=== PATIENT | female | born 1975 | race Caucasian/White ===

== ENCOUNTER → 2016-12-20 | Outpatient (CLI) | payer OTHER ==
[2016-12-20 17:56] LABS: MEAN CORPUSCULAR HEMOGLOBIN 19.9 pg (27.0-33.0); MEAN CORPUSCULAR HGB CONC 28.1 g/dl (32.0-36.5); RED CELL DISTRIBUTION WIDTH 17.9 % (11.5-14.5); WHITE BLOOD COUNT 5.2 K/mm3 (4.0-10.0)
[2016-12-20 18:00] LABS: ALBUMIN 3.4 GM/DL (3.2-5.2); ALBUMIN/GLOBULIN RATIO 1.21 (1.00-1.93); ALKALINE PHOSPHATASE 55 U/L (45-117); ALT/SGPT 13 U/L (12-78); ANION GAP 7 MEQ/L (8-16); AST/SGOT 11 U/L (15-37); BILIRUBIN,TOTAL 0.2 MG/DL (0.2-1.0); BLOOD UREA NITROGEN 8 MG/DL (7-18); CALCIUM LEVEL 7.9 MG/DL (8.5-10.1); CARBON DIOXIDE LEVEL 28 MEQ/L (21-32); CHLORIDE LEVEL 105 MEQ/L (98-107); CREATININE FOR GFR 0.63 MG/DL (0.55-1.02); FERRITIN 3 NG/ML (8-252); GLOMERULAR FILTRATION RATE > 60.0 (>60); GLUCOSE, FASTING 98 MG/DL (70-105); PERCENT SATURATION 3.4 % (13.2-37.4); POTASSIUM SERUM 3.7 MEQ/L (3.5-5.1); SODIUM LEVEL 140 MEQ/L (136-145); TOTAL IRON BINDING CAPACITY 411 UG/DL (250-450); TOTAL PROTEIN 6.2 GM/DL (6.4-8.2)
[2016-12-20 18:17] LABS: VITAMIN B12 LEVEL 227 PG/ML (247-911)
[2016-12-21 10:54] LABS: PRETREATED FOLATE FOR RBCFOL 4.5 NG/ML
== END ==
LOC: M WUC 15:08
PROVIDERS: ATTEND Family Medicine
DX: Z98.84 Bariatric surgery status (principal)

== ENCOUNTER → 2017-04-25 | Outpatient (REF) | payer OTHER | LOC: M LAB REF 10:31 | PROVIDERS: ATTEND Physician Assistant | DX: R10.31 Right lower quadrant pain (principal) ==

== ENCOUNTER → 2017-04-30 | Outpatient (CLI) | payer OTHER | LOC: M WUC 13:45 | PROVIDERS: ATTEND Family Medicine | DX: R53.83 Other fatigue (principal) ==

== ENCOUNTER 2017-09-05 10:36 | Day surgery (SDC) | payer BC, OTHER ==
[2017-09-05] MEDS ORDERED: LIDOCAINE 2% INJ 100 MG/5 ML SDV (FOR ANES.) As Ordered ×2 (10:37→12:02)
[2017-09-05] MEDS ORDERED: PROPOFOL 200 MG/20 ML VIAL As Ordered ×3 (10:37→12:07)
[2017-09-05] MEDS: NS 1,000 ML IV (11:00)
== END 2017-09-05 12:57 | disposition home or self-care (01) ==
LOC: M OPP 10:36
DX: R10.84 Generalized abdominal pain (principal); K59.00 Constipation, unspecified; R10.813 Right lower quadrant abdominal tenderness; K44.9 Diaphragmatic hernia without obstruction or gangrene; R14.0 Abdominal distension (gaseous); Z98.84 Bariatric surgery status; M54.2 Cervicalgia; F41.9 Anxiety disorder, unspecified; F32.9 Major depressive disorder, single episode, unspecified; G43.909 Migraine, unspecified, not intractable, without status migrainosus; Z87.19 Personal history of other diseases of the digestive system; F17.210 Nicotine dependence, cigarettes, uncomplicated; Z79.899 Other long term (current) drug therapy; Z80.42 Family history of malignant neoplasm of prostate
CPT/HCPCS: 45378

== ENCOUNTER → 2018-03-12 | Outpatient (REF) | payer BC, OTHER ==
[2018-03-12 11:46] LABS: HEMOGLOBIN 7.9 g/dl (12.0-15.5); MEAN CORPUSCULAR HEMOGLOBIN 18.6 pg (27.0-33.0); MEAN CORPUSCULAR HGB CONC 26.3 g/dl (32.0-36.5); MEAN CORPUSCULAR VOLUME 70.8 fl (80.0-96.0); PLATELET COUNT, AUTOMATED 261 10^3/uL (150-450); RED BLOOD COUNT 4.24 10^6/uL (4.00-5.40); RED CELL DISTRIBUTION WIDTH 22.3 % (11.5-14.5); WHITE BLOOD COUNT 5.3 10^3/uL (4.0-10.0)
[2018-03-12 12:14] LABS: HCG, SERUM QUANTITATIVE 482 MIU/ML
== END ==
LOC: M LABDRAWC 11:31
DX: Z00.00 Encounter for general adult medical examination without abnormal findings (principal)
CPT/HCPCS: 84702

== ENCOUNTER → 2018-04-27 | Outpatient (REF) | payer OTHER | LOC: M LAB REF 17:51 | DX: J02.9 Acute pharyngitis, unspecified (principal) ==

== ENCOUNTER → 2018-06-09 | Outpatient (REF) | payer OTHER | LOC: M LAB REF 19:20 | DX: J02.9 Acute pharyngitis, unspecified (principal) ==

== ENCOUNTER → 2019-02-19 | Outpatient (CLI) | payer OTHER ==
[~2019-02-19] MED LIST: CLON0.5T8; CYMB1CAP5 PO; KRATOM PO; OMEP40CA2; TRINTAB
[2019-02-19 13:20] LABS: HEMOGLOBIN 8.2 g/dl (12.0-15.5); MEAN CORPUSCULAR HEMOGLOBIN 18.3 pg (27.0-33.0); MEAN CORPUSCULAR HGB CONC 26.5 g/dl (32.0-36.5); PLATELET COUNT, AUTOMATED 226 10^3/uL (150-450); RED BLOOD COUNT 4.49 10^6/uL (4.00-5.40); WHITE BLOOD COUNT 5.7 10^3/uL (4.0-10.0)
[2019-02-19 13:52] LABS: ALBUMIN 3.7 GM/DL (3.2-5.2); ALT/SGPT 11 U/L (12-78); BILIRUBIN,TOTAL 0.4 MG/DL (0.2-1.0); BLOOD UREA NITROGEN 9 MG/DL (7-18); CALCIUM LEVEL 8.1 MG/DL (8.5-10.1); CARBON DIOXIDE LEVEL 26 MEQ/L (21-32); CHLORIDE LEVEL 105 MEQ/L (98-107); CHOLESTEROL LEVEL 147 MG/DL (<200); CHOLESTEROL RISK RATIO 2.826 (<5); FERRITIN 3 NG/ML (8-252); FOLATE 6.3 NG/ML; GLOMERULAR FILTRATION RATE > 60.0 (>58); GLUCOSE, FASTING 93 MG/DL (70-100); HDL CHOLESTEROL 52 MG/DL (>40); IRON (FE) 14 UG/DL (50-170); LDL CHOLESTEROL 81 MG/DL (<100); NON-HDL-C 95 MG/DL; PERCENT SATURATION 3.1 % (13.2-45.0); POTASSIUM SERUM 4.4 MEQ/L (3.5-5.1); SODIUM LEVEL 139 MEQ/L (136-145); TOTAL 25(OH) VITAMIN D 22.6 NG/ML (30.0-100.0); TOTAL IRON BINDING CAPACITY 445 UG/DL (250-450); TOTAL PROTEIN 6.6 GM/DL (6.4-8.2); TRIGLYCERIDES LEVEL 72 MG/DL (<150); VITAMIN B12 LEVEL 280 PG/ML
== END ==
LOC: M WUC 09:48
PROVIDERS: ATTEND Family Medicine
DX: Z98.84 Bariatric surgery status (principal)

== ENCOUNTER → 2019-05-19 | Outpatient (CLI) | payer OTHER ==
[~2019-05-19] MED LIST changes: -OMEP40CA2; +OMEP40CA97
[2019-05-19 16:31] LABS: BASO % 0.5 % (0.0-1.0); EOS % 0.5 % (0.0-3.0); HEMATOCRIT 39.3 % (36.0-47.0); HEMOGLOBIN 11.7 g/dl (12.0-15.5); LYMPH # 1.9 10^3/uL (1.5-5.0); LYMPH % 31.5 % (24.0-44.0); MEAN CORPUSCULAR HEMOGLOBIN 24.5 pg (27.0-33.0); MEAN CORPUSCULAR HGB CONC 29.8 g/dl (32.0-36.5); MEAN CORPUSCULAR VOLUME 82.4 fl (80.0-96.0); MONO # 0.5 10^3/uL (0.0-0.8); MONO % 8.6 % (0.0-5.0); NEUTROPHILS # 3.6 10^3/uL (1.5-8.5); NEUTROPHILS % 58.6 % (36.0-66.0); PLATELET COUNT, AUTOMATED 198 10^3/uL (150-450); RED BLOOD COUNT 4.77 10^6/uL (4.00-5.40); WHITE BLOOD COUNT 6.2 10^3/uL (4.0-10.0)
[2019-05-19 16:49] LABS: THYROID STIMULATING HORMONE 0.8 uIU/ML (0.358-3.740); THYROXINE (T4) 6.6 UG/DL (4.5-12.0)
[2019-05-19 17:37] LABS: PROLACTIN 7.3 NG/ML
[2019-05-22 00:08] LABS: DEHYDROEPIANDROSTERONE SULFATE 69.6 ug/dL (57.3-279.2); TESTOSTERONE FREE (DIRECT) 0.7 pg/mL (0.0-4.2)
== END ==
LOC: M WUC 12:04
PROVIDERS: ATTEND Nurse Practitioner Women's Health
DX: N92.1 Excessive and frequent menstruation with irregular cycle (principal)

== ENCOUNTER → 2020-03-02 | Outpatient (REF) | payer OTHER ==
[~2020-03-02] MED LIST changes: +CLON0.5T2; -CLON0.5T8; +FLUC200T2; +LEVO750T13; +PRED20TA PO; +TRAM50TA2 PO; +VITA50005
[2020-04-02 10:22] LABS: BASO % 0.6 % (0.0-1.0); EOS # 0.2 10^3/uL (0.0-0.5); EOS % 2.7 % (0.0-3.0); HEMATOCRIT 45.3 % (36.0-47.0); HEMOGLOBIN 14.7 g/dl (12.0-15.5); LYMPH # 2.1 10^3/uL (1.5-5.0); LYMPH % 29.3 % (24.0-44.0); MEAN CORPUSCULAR HEMOGLOBIN 32.5 pg (27.0-33.0); MEAN CORPUSCULAR HGB CONC 32.5 g/dl (32.0-36.5); MONO # 0.5 10^3/uL (0.0-0.8); MONO % 7.6 % (0.0-5.0); NEUTROPHILS # 4.2 10^3/uL (1.5-8.5); NEUTROPHILS % 59.5 % (36.0-66.0); PLATELET COUNT, AUTOMATED 203 10^3/uL (150-450); RED BLOOD COUNT 4.53 10^6/uL (4.00-5.40); WHITE BLOOD COUNT 7.1 10^3/uL (4.0-10.0)
[2020-04-15 21:58] LABS: ALBUMIN 3.8 GM/DL (3.2-5.2); ALT/SGPT 24 U/L (12-78); BILIRUBIN,TOTAL 0.6 MG/DL (0.2-1.0); BLOOD UREA NITROGEN 18 MG/DL (7-18); CALCIUM LEVEL 8.7 MG/DL (8.5-10.1); CARBON DIOXIDE LEVEL 27 MEQ/L (21-32); CHLORIDE LEVEL 107 MEQ/L (98-107); CHOLESTEROL LEVEL 184 MG/DL (<200); CHOLESTEROL RISK RATIO 2.389 (<5); CREATININE FOR GFR 0.86 MG/DL (0.55-1.30); FERRITIN 19 NG/ML (8-252); FREE T4 0.81 NG/DL (0.76-1.46); GLOMERULAR FILTRATION RATE > 60.0 (>58); GLUCOSE, FASTING 103 MG/DL (70-100); HDL CHOLESTEROL 77 MG/DL (>40); HEMOGLOBIN A1c 5.3 %; IRON (FE) 133 UG/DL (50-170); LDL CHOLESTEROL 94 MG/DL (<100); MAGNESIUM LEVEL 1.9 MG/DL (1.8-2.4); NON-HDL-C 107 MG/DL; POTASSIUM SERUM 4.7 MEQ/L (3.5-5.1); SODIUM LEVEL 140 MEQ/L (136-145); THYROID STIMULATING HORMONE 0.995 uIU/ML (0.358-3.740); TOTAL 25(OH) VITAMIN D 21.1 NG/ML (30.0-100.0); TOTAL IRON BINDING CAPACITY 416 UG/DL (250-450); TOTAL PROTEIN 6.7 GM/DL (6.4-8.2); TRIGLYCERIDES LEVEL 64 MG/DL (<150); VITAMIN B12 LEVEL 477 PG/ML
== END ==
LOC: M LABDRAWC 15:38
PROVIDERS: ATTEND Physician Assistant
DX: Z13.29 Encounter for screening for other suspected endocrine disorder (principal); Z13.220 Encounter for screening for lipoid disorders; Z98.84 Bariatric surgery status

== ENCOUNTER 2020-04-04 15:31 | Emergency (ER) | payer BC, OTHER ==
[~2020-04-04] VITALS: Ht 165.1 cm; Wt 101.3 kg
[~2020-04-04 15:31] MED LIST changes: -FLUC200T2; -LEVO750T13; -PRED20TA PO; -TRAM50TA2 PO; -VITA50005
[2020-04-04] MEDS ORDERED: FLUC200T2 (15:41)
[2020-04-04] MEDS ORDERED: VITA50005 (15:41)
[2020-04-04] MEDS ORDERED: LEVO750T13 (15:41)
[2020-04-04 17:26] LABS: BASO % 0.4 % (0.0-1.0); EOS # 0.2 10^3/uL (0.0-0.5); EOS % 3.2 % (0.0-3.0); HEMATOCRIT 41.8 % (36.0-47.0); HEMOGLOBIN 14.2 g/dl (12.0-15.5); LYMPH # 2.6 10^3/uL (1.5-5.0); LYMPH % 36.3 % (24.0-44.0); MEAN CORPUSCULAR HEMOGLOBIN 33.7 pg (27.0-33.0); MEAN CORPUSCULAR VOLUME 99.3 fl (80.0-96.0); MONO # 0.6 10^3/uL (0.0-0.8); MONO % 8.2 % (0.0-5.0); NEUTROPHILS # 3.7 10^3/uL (1.5-8.5); NEUTROPHILS % 51.6 % (36.0-66.0); PLATELET COUNT, AUTOMATED 178 10^3/uL (150-450); RED BLOOD COUNT 4.21 10^6/uL (4.00-5.40); WHITE BLOOD COUNT 7.2 10^3/uL (4.0-10.0)
[2020-04-04 17:47] LABS: HCG, SERUM QUALITATIVE NEGATIVE (NEGATIVE)
[2020-04-04] MEDS ORDERED: ISOVUE-370 76% 100ML VIAL As Ordered ONE (17:56)
[2020-04-04 17:58] LABS: ALBUMIN 3.4 GM/DL (3.2-5.2); ALT/SGPT 47 U/L (12-78); BILIRUBIN,TOTAL 0.4 MG/DL (0.2-1.0); BLOOD UREA NITROGEN 11 MG/DL (7-18); CALCIUM LEVEL 8.1 MG/DL (8.5-10.1); CARBON DIOXIDE LEVEL 27 MEQ/L (21-32); CHLORIDE LEVEL 107 MEQ/L (98-107); CK-MB VALUE MASS < 1.0 NG/ML (<3.6); CPK CREATINE PHOSPHOKINASE 53 U/L (26-192); CREATININE FOR GFR 0.88 MG/DL (0.55-1.30); GLOMERULAR FILTRATION RATE > 60.0 (>58); GLUCOSE, FASTING 74 MG/DL (70-100); LIPASE 76 U/L (73-393); MB/CK RELATIVE INDEX 1.89 (< OR =4); SODIUM LEVEL 140 MEQ/L (136-145); TOTAL PROTEIN 6.2 GM/DL (6.4-8.2); TROPONIN I < 0.02 NG/ML (< 0.10)
--- NOTE | 2020-04-04 18:38 | REPVR ---
PROCEDURE INFORMATION: Exam: CT Angiography Chest With Contrast Exam date and time: 04/04/2020 4:12 PM Age: 45 years old Clinical indication: Pain and abnormal findings; Abnormal diagnostic tests; Elevated d-dimer; Chest pain; Additional info: Right chest pain TECHNIQUE: Imaging protocol: Computed tomographic angiography of the chest with intravenous contrast. 3D rendering (Not supervised by radiologist): MIP and/or 3D reconstructed images were created by the technologist. Radiation optimization: All CT scans at this facility use at least one of these dose optimization techniques: automated exposure control; mA and/or kV adjustment per patient size (includes targeted exams where dose is matched to clinical indication); or iterative reconstruction. Contrast material: ISOVUE 370; Contrast volume: 75 ml; Contrast route: INTRAVENOUS (IV); COMPARISON: CR Chest, 2 view PA, Lat 04/04/2020 1:24 PM FINDINGS: Pulmonary arteries: No focal pulmonary artery filling defect to suggest acute pulmonary embolus. Aorta: No thoracic aortic aneurysm or dissection. Lungs: Pulmonary vascular/interstitial pattern does not suggest active pulmonary edema. Lung parenchyma is unremarkable except for dependent atelectasis. No suspicious lung mass or air space process. Pleural space: Small dependent right pleural effusion with transudate density. No pneumothorax. Heart: No overt cardiac enlargement or abnormal volume of pericardial fluid. Lymph nodes: No enlarged mediastinal lymph nodes. Stomach and bowel: Postsurgical changes of gastric bypass procedure are present. Bones/joints: Bony structures show no acute fracture or destructive process. IMPRESSION: 1. No evidence of acute pulmonary embolus. 2. Miniscule dependent right pleural effusion with compressive atelectasis. No underlying pneumonia or pulmonary edema Electronically signed by: Dong Howard On 04/04/2020 18:38:02 PM
[2020-04-04] MEDS ORDERED: PRED20TA PO (19:01)
[2020-04-04] MEDS ORDERED: TRAM50TA2 PO (19:01)
[2020-04-04 19:26] VITALS: BP 135/69
--- NOTE | 2020-04-12 11:33 | ECGEPIP ---
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
== END 2020-04-04 19:28 | disposition home or self-care (01) ==
LOC: M ED 15:31
DX: J90 Pleural effusion, not elsewhere classified (principal); F33.9 Major depressive disorder, recurrent, unspecified; F41.0 Panic disorder [episodic paroxysmal anxiety]; F17.210 Nicotine dependence, cigarettes, uncomplicated; Z79.2 Long term (current) use of antibiotics; Z79.899 Other long term (current) drug therapy; Z91.048 Other nonmedicinal substance allergy status; Z98.0 Intestinal bypass and anastomosis status; Z90.49 Acquired absence of other specified parts of digestive tract; Z97.5 Presence of (intrauterine) contraceptive device
CPT/HCPCS: 71275; 80053; 82550; 82553; 83690; 84443; 84484; 84703; 85025; 93005; 99284; Q9967

== ENCOUNTER → 2020-04-04 | Outpatient (CLI) | payer BC, OTHER ==
[2020-04-04 13:09] LABS: BASO % 0.6 % (0.0-1.0); EOS # 0.2 10^3/uL (0.0-0.5); EOS % 2.1 % (0.0-3.0); HEMATOCRIT 44.9 % (36.0-47.0); HEMOGLOBIN 14.7 g/dl (12.0-15.5); LYMPH # 2.5 10^3/uL (1.5-5.0); LYMPH % 34.7 % (24.0-44.0); MEAN CORPUSCULAR HEMOGLOBIN 32.8 pg (27.0-33.0); MEAN CORPUSCULAR HGB CONC 32.7 g/dl (32.0-36.5); MEAN CORPUSCULAR VOLUME 100.2 fl (80.0-96.0); MONO # 0.5 10^3/uL (0.0-0.8); MONO % 6.9 % (0.0-5.0); NEUTROPHILS # 3.9 10^3/uL (1.5-8.5); NEUTROPHILS % 55.4 % (36.0-66.0); PLATELET COUNT, AUTOMATED 176 10^3/uL (150-450); RED BLOOD COUNT 4.48 10^6/uL (4.00-5.40); WHITE BLOOD COUNT 7.1 10^3/uL (4.0-10.0)
[2020-04-04 13:18] LABS: INR 0.99; PROTHROMBIN TIME 13.3 SECONDS (11.8-14.0)
[2020-04-04 13:19] LABS: PARTIAL THROMBOPLASTIN TIME 31.5 SECONDS (25.0-38.4)
[2020-04-04 13:21] LABS: D-DIMER QUANT 1000.85 ng/ml (<500)
[2020-04-04 13:39] LABS: ALBUMIN 3.6 GM/DL (3.2-5.2); ALT/SGPT 51 U/L (12-78); BILIRUBIN,TOTAL 0.5 MG/DL (0.2-1.0); BLOOD UREA NITROGEN 11 MG/DL (7-18); CALCIUM LEVEL 8.6 MG/DL (8.5-10.1); CARBON DIOXIDE LEVEL 27 MEQ/L (21-32); CHLORIDE LEVEL 106 MEQ/L (98-107); CREATININE FOR GFR 0.78 MG/DL (0.55-1.30); GLOMERULAR FILTRATION RATE > 60.0 (>58); GLUCOSE, FASTING 92 MG/DL (70-100); POTASSIUM SERUM 4.2 MEQ/L (3.5-5.1); SODIUM LEVEL 138 MEQ/L (136-145); TOTAL PROTEIN 6.6 GM/DL (6.4-8.2)
--- NOTE | 2020-04-21 09:43 | REP ---
CHEST X-RAY: 2-VIEWS CLINICAL: Pleurisy. FINDINGS: The lungs are symmetrically aerated and free of infiltrate. Pleural angles are sharp on the frontal and lateral views. Cardiomediastinal silhouette is unremarkable. Pulmonary vasculature is not increased. IMPRESSION: No active disease. MTDD
== END ==
LOC: M LAB 12:35
PROVIDERS: ATTEND Physician Assistant
DX: R09.1 Pleurisy (principal)

== ENCOUNTER → 2020-05-06 | Outpatient (REF) | payer BC, OTHER ==
[~2020-05-06] MED LIST changes: +FLUC200T2; +LEVO750T13; +PRED20TA PO; +TRAM50TA2 PO; +VITA50005
[2020-05-06 17:25] LABS: ALBUMIN 3.6 GM/DL (3.2-5.2); ALT/SGPT 22 U/L (12-78); BILIRUBIN,TOTAL 0.5 MG/DL (0.2-1.0); BLOOD UREA NITROGEN 12 MG/DL (7-18); CALCIUM LEVEL 8.2 MG/DL (8.5-10.1); CARBON DIOXIDE LEVEL 27 MEQ/L (21-32); CHLORIDE LEVEL 107 MEQ/L (98-107); CREATININE FOR GFR 0.71 MG/DL (0.55-1.30); FREE T4 0.85 NG/DL (0.76-1.46); GLOMERULAR FILTRATION RATE > 60.0 (>58); GLUCOSE, FASTING 90 MG/DL (70-100); POTASSIUM SERUM 4.7 MEQ/L (3.5-5.1); SODIUM LEVEL 137 MEQ/L (136-145); TOTAL 25(OH) VITAMIN D 46.1 NG/ML (30.0-100.0); TOTAL PROTEIN 6.4 GM/DL (6.4-8.2)
[2020-05-09 17:07] LABS: TISSUE TRANSGLUTAMINASE IgA <2 U/mL (0-3); TISSUE TRANSGLUTAMINASE IgG <2 U/mL (0-5)
[2020-05-09 19:07] LABS: ANA (HEP2) Negative (.); Lyme Disease IgG/IgM Antibodie <0.91 ISR (0.00-0.90); Lyme Disease IgM Ab Quantitati <0.80 index (0.00-0.79)
== END ==
LOC: M LABDRAWC 16:03
PROVIDERS: ATTEND Physician Assistant
DX: R53.83 Other fatigue (principal)

== ENCOUNTER → 2020-06-27 | Outpatient (CLI) | payer BC, OTHER ==
--- NOTE | 2020-06-27 11:04 | REP ---
INDICATION: PLEURAL EFFUSION. COMPARISON: 04/04/2020. TECHNIQUE: CT of the chest without IV contrast. FINDINGS: On the comparison study there was a small right pleural effusion and there was a dependent atelectasis. On the current study a right pleural effusion has resolved. The dependent atelectasis has resolved. The lung hager are otherwise clear. There is an enlarged mediastinal aorticopulmonic window node measuring 13 mm short axis. This measured 13 mm on the prior study. There is no other mediastinal lymph node enlargement. There is no axillary lymph node enlargement. In the absence of IV contrast the study is insensitive for hilar The unenhanced thoracic aorta is unremarkable. The cardiac size is normal. There is no pericardial effusion. Upper abdomen: There are surgical clips in the gallbladder fossa. This is unchanged. There are surgical clips in the mid upper abdomen compatible with bariatric surgery, unchanged. The visualized upper abdominal contents are otherwise unremarkable and unchanged. Lymph node enlargement. There was no hilar lymph node enlargement on the prior study that was performed with IV contrast. IMPRESSION: And the previous small right pleural effusion and dependent atelectasis have resolved. The lung hager are otherwise clear. There is an enlarged single aortopulmonic window mediastinal node measuring up to 13 mm short axis. This is unchanged. There has been no interval size increase. There is no other adenopathy. As a precaution a follow-up CT of the chest in approximately 6 months might be considered for follow up of this single enlarged node. There are surgical clips in the upper abdomen as described. <Electronically signed by Mihir Maldonado > 06/27/20 [id number]
== END ==
LOC: M RAD 08:35
PROVIDERS: ATTEND Physician Assistant
DX: J90 Pleural effusion, not elsewhere classified (principal)

== ENCOUNTER → 2020-10-26 | Outpatient (REF) | payer OTHER | LOC: M LAB REF 18:59 | PROVIDERS: ATTEND Physician Assistant | DX: R30.0 Dysuria (principal) ==

== ENCOUNTER → 2021-01-30 | Outpatient (CLI) | payer OTHER ==
[~2021-01-30] MED LIST changes: +ERGO500029; +OMEP40CA4; -OMEP40CA97; -VITA50005
[2021-01-30 15:53] LABS: BASO % 0.6 % (0.0-1.0); EOS # 0.2 10^3/uL (0.0-0.5); EOS % 3.2 % (0.0-3.0); HEMOGLOBIN 13.7 g/dl (12.0-15.5); LYMPH # 2.2 10^3/uL (1.5-5.0); LYMPH % 33.7 % (24.0-44.0); MEAN CORPUSCULAR HEMOGLOBIN 32.1 pg (27.0-33.0); MEAN CORPUSCULAR HGB CONC 32.6 g/dl (32.0-36.5); MEAN CORPUSCULAR VOLUME 98.4 fl (80.0-96.0); MONO # 0.4 10^3/uL (0.0-0.8); NEUTROPHILS # 3.6 10^3/uL (1.5-8.5); NEUTROPHILS % 56.2 % (36.0-66.0); PLATELET COUNT, AUTOMATED 174 10^3/uL (150-450); RED BLOOD COUNT 4.27 10^6/uL (4.00-5.40); WHITE BLOOD COUNT 6.5 10^3/uL (4.0-10.0)
[2021-01-30 16:09] LABS: MONO REFLEX EBV COMP NEGATIVE (NEGATIVE)
[2021-01-30 16:14] LABS: ALBUMIN 3.2 GM/DL (3.2-5.2); ALT/SGPT 21 U/L (12-78); BILIRUBIN,TOTAL 0.3 MG/DL (0.2-1.0); BLOOD UREA NITROGEN 6 MG/DL (7-18); CARBON DIOXIDE LEVEL 28 MEQ/L (21-32); CHLORIDE LEVEL 107 MEQ/L (98-107); CPK CREATINE PHOSPHOKINASE 33 U/L (26-192); CREATININE FOR GFR 0.63 MG/DL (0.55-1.30); FERRITIN 16 NG/ML (8-252); GLOMERULAR FILTRATION RATE > 60.0 (>58); GLUCOSE, FASTING 90 MG/DL (70-100); IRON (FE) 77 UG/DL (50-170); PERCENT SATURATION 25.2 % (13.2-45.0); POTASSIUM SERUM 3.9 MEQ/L (3.5-5.1); SODIUM LEVEL 140 MEQ/L (136-145); TOTAL IRON BINDING CAPACITY 306 UG/DL (250-450); TOTAL PROTEIN 5.8 GM/DL (6.4-8.2)
== END ==
LOC: M WUC 13:59
PROVIDERS: ATTEND Physician Assistant
DX: R53.83 Other fatigue (principal)

== ENCOUNTER → 2021-02-07 | Outpatient (CLI) | payer BC, OTHER ==
[~2021-02-07] MED LIST changes: +ISOVUE-370 76% 100ML VIAL As Ordered ONE
--- NOTE | 2021-02-07 15:02 | REP ---
INDICATION: PULMONARY NODULE. COMPARISON: 06/27/2020, 04/04/2020 TECHNIQUE: A bolus of 75 mL Isovue 370 scanning through the chest with coronal and sagittal reconstructions. FINDINGS: The lung hager are well inflated. There is minimal dependent atelectasis in the deep sulcus of posterior aspect of the right lower lobe. There is no pleural effusion, pleural thickening, calcified pleural plaque or acute infiltrate. No parenchymal nodule or mass seen. No pneumothorax. The heart is not enlarged. There is no pericardial thickening or effusion. The aorta was unremarkable and without aneurysm or dissection. The central pulmonary arteries in the mediastinum are without filling defect. There is an 11 mm lymph node by short axis measurement in the AP window similar to the previous study, it is certainly not larger. There are other sub cm nodes in the right hilum, right paratracheal and precarinal region. The bone windows show minor thoracic spondylosis which appears grossly unchanged. There is no compression deformity. The sternum, manubrium, medial clavicles, AC joints, visualized portions of scapula and humeral heads are all unremarkable. The ribs are without focal lesion. The upper abdomen shows evidence for prior gastric bypass and gastric stapling. Those portions of the liver, spleen, pancreas, adrenal glands and upper poles of kidneys are unchanged without acute finding. She has had a prior cholecystectomy. No calcified stone in the common duct. IMPRESSION: 1. Stable chest with 11 mm AP window node but no parenchymal lung findings of an acute nature. The heart and mediastinal contours are otherwise normal. The aorta and central pulmonary arteries intact. Upper abdomen shows evidence of prior cholecystectomy and gastric stapling/bypass. No new or acute finding. <Electronically signed by Kang Nogueira > 02/07/21 [id number]
== END ==
LOC: M RAD 13:12
PROVIDERS: ATTEND Physician Assistant
DX: R91.1 Solitary pulmonary nodule (principal)

== ENCOUNTER → 2021-06-29 | Outpatient (REF) | payer BC, OTHER ==
[~2021-06-29] MED LIST changes: -FLUC200T2; +FLUC200T4; -ISOVUE-370 76% 100ML VIAL As Ordered ONE
== END ==
LOC: M LAB REF 17:02
PROVIDERS: ATTEND Physician Assistant
DX: R82.90 Unspecified abnormal findings in urine (principal)

== ENCOUNTER 2022-03-03 14:20 | Emergency (ER) | payer BC, MEDICAID, OTHER ==
[~2022-03-03] VITALS: Ht 165.1 cm; Wt 79.7 kg
[~2022-03-03 14:20] MED LIST changes: +LEVO1TAB40; -LEVO750T13
[2022-03-03] MEDS ORDERED: CITA40TA7 PO ×2 (14:57→18:19)
[2022-03-03] MEDS ORDERED: ZOLP10TA2 PO (14:57)
[2022-03-03] MEDS ORDERED: AMPH1CAP5 PO ×2 (14:57→18:18)
[2022-03-03] MEDS ORDERED: GABA-282 PO (14:57)
[2022-03-03] MEDS ORDERED: LORA1TAB4 PO (14:57)
[2022-03-03 18:37] VITALS: BP 122/91
== END 2022-03-03 18:38 | disposition home or self-care (01) ==
LOC: M ED 14:20
DX: F32.A Depression, unspecified (principal); Z76.0 Encounter for issue of repeat prescription; F17.200 Nicotine dependence, unspecified, uncomplicated; Z88.1 Allergy status to other antibiotic agents

== ENCOUNTER 2022-07-21 16:21 | Emergency (ER) | payer MEDICAID, OTHER ==
[~2022-07-21] VITALS: Ht 162.6 cm; Wt 77.3 kg
[~2022-07-21 16:21] MED LIST changes: +AMPH1CAP5 PO; +CITA40TA7 PO; +GABA-282 PO; +LORA1TAB4 PO; +ZOLP10TA2 PO
[2022-07-21 19:20] VITALS: BP 128/64
== END 2022-07-21 22:09 | disposition home or self-care (01) ==
LOC: M ED 16:41
DX: F43.0 Acute stress reaction (principal); Z59.00 Homelessness unspecified; Z90.49 Acquired absence of other specified parts of digestive tract; Z98.84 Bariatric surgery status; G43.909 Migraine, unspecified, not intractable, without status migrainosus; F17.200 Nicotine dependence, unspecified, uncomplicated; Z88.1 Allergy status to other antibiotic agents; Z79.899 Other long term (current) drug therapy

== ENCOUNTER 2022-08-01 02:11 | Inpatient (IN) | payer OTHER ==
[~2022-08-01] VITALS: Ht 165.1 cm; Wt 77.3 kg
[2022-08-01 02:53] LABS: HEMATOCRIT 34.5 % (36.0-47.0); HEMOGLOBIN 9.7 g/dl (12.0-15.5); MEAN CORPUSCULAR HEMOGLOBIN 22.4 pg (27.0-33.0); MEAN CORPUSCULAR HGB CONC 28.1 g/dl (32.0-36.5); MEAN CORPUSCULAR VOLUME 79.7 fl (80.0-96.0); PLATELET COUNT, AUTOMATED 316 10^3/uL (150-450); RED BLOOD COUNT 4.33 10^6/uL (4.00-5.40); WHITE BLOOD COUNT 10.7 10^3/uL (4.0-10.0)
[2022-08-01 03:18] LABS: AMPHETAMINES LEVEL URINE NEGATIVE (NEGATIVE); BARBITURATES URINE NEGATIVE (NEGATIVE); BENZODIAZEPINES URINE NEGATIVE (NEGATIVE); COCAINE METABOLITE URINE NEGATIVE (NEGATIVE); ETHYL ALCOHOL (ETHANOL) 0.003 % (0.000-0.010); METHADONE URINE NEGATIVE (NEGATIVE); OPIATES URINE NEGATIVE (NEGATIVE); PHENCYCLIDINE URINE NEGATIVE (NEGATIVE)
[2022-08-01 03:20] LABS: BILIRUBIN,DIRECT < 0.1 MG/DL (<0.4); SALICYLATE LEVEL < 3.0 MG/DL (<30)
[2022-08-01 03:21] LABS: ACETAMINOPHEN LEVEL < 2.0 UG/ML (10.0-20.0); ALKALINE PHOSPHATASE 53 U/L (46-116); ALT/SGPT 15 U/L (7.0-40); AST/SGOT 20 U/L (<34); BILIRUBIN,TOTAL 0.2 MG/DL (0.3-1.2); BLOOD UREA NITROGEN 6 MG/DL (9-23); CALCIUM LEVEL 8.7 MG/DL (8.5-10.1); CARBON DIOXIDE LEVEL 26 MMOL/L (20-31); CHLORIDE LEVEL 105 MMOL/L (98-107); CREATININE FOR GFR 0.59 MG/DL (0.55-1.30); GLOMERULAR FILTRATION RATE > 60.0 (>58); GLUCOSE, FASTING 110 MG/DL (60-100); POTASSIUM SERUM 3.8 MMOL/L (3.5-5.1); SODIUM LEVEL 140 MMOL/L (136-145); TOTAL PROTEIN 6.8 G/DL (5.7-8.2)
[2022-08-01 03:24] LABS: CANNABINOIDS URINE POSITIVE (NEGATIVE)
[2022-08-01 04:04] LABS: THYROID STIMULATING HORMONE 2.564 uIU/ML (0.55-4.78)
[2022-08-01 04:26] LABS: RSV AMPLIFICATION NEGATIVE (NEGATIVE)
[2022-08-01 04:45] LABS: HCG, SERUM QUALITATIVE NEGATIVE (NEGATIVE)
[2022-08-01] MEDS ORDERED: CLON0.2T PO (05:55)
[2022-08-01] MEDS ORDERED: HOME MED LIST COMPLETE! XX SCH (06:00)
[2022-08-01] MEDS ORDERED: cloNIDine 0.2 MG TAB PO PRN (08:15)
[2022-08-01] MEDS ORDERED: NICOTINE 21MG/24HR 1 EA TRANSDERMAL TD ONE (10:45)
[2022-08-02] MEDS ORDERED: ACETAMINOPHEN TAB 650MG DOSE (2X325MG) PO ONE (05:55)
[2022-08-02 08:02] VITALS: BP 146/75
[2022-08-02] MEDS ORDERED: NICOTINE 21MG/24HR 1 EA TRANSDERMAL TD SCH (09:00)
[2022-08-02] MEDS ORDERED: MAALOX 30 ML SUSP *UDC PO PRN (13:40)
[2022-08-02] MEDS ORDERED: OLANZapine ORAL DISINTEGRATING TAB 5MG PO PRN (13:40)
[2022-08-02] MEDS ORDERED: cloNIDine 0.2 MG TAB PO PRN (13:40)
[2022-08-02] MEDS ORDERED: traZODone 50 MG TAB PO PRN (13:40)
[2022-08-02] MEDS ORDERED: ACETAMINOPHEN TAB 650MG DOSE (2X325MG) PO PRN (13:40)
[2022-08-02] MEDS ORDERED: MOM 30ML SUSPENSION UDC PO PRN (13:40)
[2022-08-02 14:27] VITALS: BP 145/72
[2022-08-03 06:27] VITALS: BP 118/74
[2022-08-03 17:19] VITALS: BP 151/72
[2022-08-03] MEDS: MIRTAZAPINE 7.5MG PER 1/2 TABLET PO SCH (21:50)
[2022-08-04 06:56] VITALS: BP 122/85
[2022-08-04] MEDS: NICOTINE 21MG/24HR 1 EA TRANSDERMAL TD PRN (08:33)
[2022-08-04] MEDS: diphenhydrAMINE 25MG CAP PO PRN (14:23)
[2022-08-04] MEDS: IBUPROFEN 400MG TAB PO PRN (14:24)
[2022-08-04 17:37] VITALS: BP 157/85
[2022-08-04] MEDS: MIRTAZAPINE 7.5MG PER 1/2 TABLET PO SCH (21:32)
[2022-08-05] MEDS: IBUPROFEN 400MG TAB PO PRN (04:42)
[2022-08-05] MEDS: diphenhydrAMINE 25MG CAP PO PRN (04:42)
[2022-08-05 06:34] VITALS: BP 141/90
[2022-08-05] MEDS: NICOTINE 21MG/24HR 1 EA TRANSDERMAL TD PRN (07:54)
[2022-08-05 17:42] VITALS: BP 155/85
[2022-08-05] MEDS: MIRTAZAPINE 7.5MG PER 1/2 TABLET PO SCH (21:33)
[2022-08-05 22:10] VITALS: BP 140/68
[2022-08-06 06:33] VITALS: BP 134/79
[2022-08-06] MEDS: diphenhydrAMINE 25MG CAP PO PRN ×2 (07:30→22:32)
[2022-08-06] MEDS: IBUPROFEN 400MG TAB PO PRN ×2 (07:33→22:33)
[2022-08-06] MEDS: NICOTINE 21MG/24HR 1 EA TRANSDERMAL TD PRN (22:32)
[2022-08-06] MEDS: MIRTAZAPINE 7.5MG PER 1/2 TABLET PO SCH (22:32)
[2022-08-07 06:24] VITALS: BP 125/75
[2022-08-07] MEDS ORDERED: NICO21PAT TD (08:37)
[2022-08-07] MEDS ORDERED: MIRT-10 PO (08:37)
[2022-08-07] MEDS ORDERED: OLAN5ZYD PO (08:37)
[2022-08-08] MEDS ORDERED: MIRT-62 PO (06:15)
[2022-08-08] MEDS ORDERED: OLAN5ZYD PO (06:18)
[2022-08-08] MEDS ORDERED: NICO21DI38 TD (06:18)
== END 2022-08-07 15:36 | disposition home or self-care (01) | DRG 756 ==
LOC: M ED 02:11 → M ED INP 08-02 13:38 → M PSY 08-02 14:31
PROVIDERS: ADMIT Psychiatry & Neurology Psychiatry; ATTEND Student in an Organized Health Care Education/Training Program
DX: F41.9 Anxiety disorder, unspecified (principal); F12.159 Cannabis abuse with psychotic disorder, unspecified; F31.9 Bipolar disorder, unspecified; F17.200 Nicotine dependence, unspecified, uncomplicated; J30.89 Other allergic rhinitis; Z79.899 Other long term (current) drug therapy; Z88.1 Allergy status to other antibiotic agents; Z59.00 Homelessness unspecified

== ENCOUNTER 2022-08-07 18:50 | Emergency (ER) | payer OTHER ==
[~2022-08-07] VITALS: Ht 165.1 cm; Wt 87.5 kg
[~2022-08-07 18:50] MED LIST changes: +CLON0.2T PO; +MIRT-10 PO; +NICO21PAT TD; +OLAN5ZYD PO
[2022-08-08] MEDS ORDERED: NICOTINE 21MG/24HR 1 EA TRANSDERMAL TD ONE (02:30)
[2022-08-08 02:58] LABS: HEMATOCRIT 33.7 % (36.0-47.0); HEMOGLOBIN 9.4 g/dl (12.0-15.5); MEAN CORPUSCULAR HEMOGLOBIN 22.3 pg (27.0-33.0); MEAN CORPUSCULAR HGB CONC 27.9 g/dl (32.0-36.5); PLATELET COUNT, AUTOMATED 236 10^3/uL (150-450); RED BLOOD COUNT 4.21 10^6/uL (4.00-5.40); WHITE BLOOD COUNT 5.7 10^3/uL (4.0-10.0)
[2022-08-08 03:23] LABS: BARBITURATES URINE NEGATIVE (NEGATIVE); COCAINE METABOLITE URINE NEGATIVE (NEGATIVE)
[2022-08-08 03:24] LABS: AMPHETAMINES LEVEL URINE NEGATIVE (NEGATIVE); BENZODIAZEPINES URINE NEGATIVE (NEGATIVE); METHADONE URINE NEGATIVE (NEGATIVE); OPIATES URINE NEGATIVE (NEGATIVE); PHENCYCLIDINE URINE NEGATIVE (NEGATIVE)
[2022-08-08 03:25] LABS: CANNABINOIDS URINE POSITIVE (NEGATIVE)
[2022-08-08 03:26] LABS: ETHYL ALCOHOL (ETHANOL) 0.003 % (0.000-0.010)
[2022-08-08 03:27] LABS: ACETAMINOPHEN LEVEL < 2.0 UG/ML (10.0-20.0); BILIRUBIN,DIRECT 0.1 MG/DL (<0.4); SALICYLATE LEVEL < 3.0 MG/DL (<30)
[2022-08-08 03:28] LABS: ALBUMIN 3.7 G/DL (3.2-5.2); ALKALINE PHOSPHATASE 54 U/L (46-116); ALT/SGPT 18 U/L (7.0-40); AST/SGOT 22 U/L (<34); BILIRUBIN,TOTAL 0.3 MG/DL (0.3-1.2); BLOOD UREA NITROGEN 13 MG/DL (9-23); CALCIUM LEVEL 8.4 MG/DL (8.5-10.1); CARBON DIOXIDE LEVEL 26 MMOL/L (20-31); CHLORIDE LEVEL 106 MMOL/L (98-107); CREATININE FOR GFR 0.57 MG/DL (0.55-1.30); GLOMERULAR FILTRATION RATE > 60.0 (>58); GLUCOSE, FASTING 106 MG/DL (60-100); POTASSIUM SERUM 3.8 MMOL/L (3.5-5.1); SODIUM LEVEL 140 MMOL/L (136-145); TOTAL PROTEIN 6.5 G/DL (5.7-8.2)
[2022-08-08 03:29] LABS: HCG, SERUM QUALITATIVE NEGATIVE (NEGATIVE)
[2022-08-08 03:30] LABS: THYROID STIMULATING HORMONE 0.552 uIU/ML (0.55-4.78)
[2022-08-08 03:32] LABS: RSV AMPLIFICATION NEGATIVE (NEGATIVE)
[2022-08-08 05:15] VITALS: BP 128/85
[2022-08-08] MEDS ORDERED: MIRT-62 PO (06:15)
[2022-08-08] MEDS ORDERED: OLAN5ZYD PO (06:18)
[2022-08-08] MEDS ORDERED: NICO21DI38 TD (06:18)
[2022-08-08] MEDS ORDERED: HOME MED LIST COMPLETE! XX SCH (06:20)
[2022-08-08] MEDS ORDERED: OLANZapine ORAL DISINTEGRATING TAB 5MG PO PRN (07:25)
== END 2022-08-08 17:05 | disposition home or self-care (01) ==
LOC: M ED 18:50
DX: F32.A Depression, unspecified (principal); F41.9 Anxiety disorder, unspecified; G47.00 Insomnia, unspecified; G43.909 Migraine, unspecified, not intractable, without status migrainosus; E66.9 Obesity, unspecified; F17.200 Nicotine dependence, unspecified, uncomplicated; Z88.1 Allergy status to other antibiotic agents; Z90.49 Acquired absence of other specified parts of digestive tract; Z98.84 Bariatric surgery status

== ENCOUNTER 2022-08-08 20:42 | Emergency (ER) | payer OTHER ==
[~2022-08-08] VITALS: Ht 165.1 cm; Wt 81.1 kg
[~2022-08-08 20:42] MED LIST changes: +MIRT-62 PO; +NICO21DI38 TD
[2022-08-09 07:46] VITALS: BP 134/77
== END 2022-08-09 08:56 | disposition home or self-care (01) ==
LOC: M ED 21:33
DX: F32.A Depression, unspecified (principal); Z60.9 Problem related to social environment, unspecified; Z59.00 Homelessness unspecified; R51.9 Headache, unspecified; F17.200 Nicotine dependence, unspecified, uncomplicated; Z88.1 Allergy status to other antibiotic agents; Z79.899 Other long term (current) drug therapy

== ENCOUNTER 2022-08-12 15:12 | Emergency (ER) | payer OTHER ==
[~2022-08-12] VITALS: Ht 165.1 cm; Wt 82.0 kg
[2022-08-12] MEDS ORDERED: LORazepam 1 MG TAB PO STA (17:09)
[2022-08-12] MEDS ORDERED: IBUPROFEN 600MG TAB PO ONE (17:10)
[2022-08-12 17:17] LABS: BASO % 0.6 % (0.0-1.0); EOS # 0.1 10^3/uL (0.0-0.5); HEMATOCRIT 30.2 % (36.0-47.0); HEMOGLOBIN 8.7 g/dl (12.0-15.5); LYMPH # 1.1 10^3/uL (1.5-5.0); LYMPH % 22.8 % (24.0-44.0); MEAN CORPUSCULAR HEMOGLOBIN 22.6 pg (27.0-33.0); MEAN CORPUSCULAR HGB CONC 28.8 g/dl (32.0-36.5); MEAN CORPUSCULAR VOLUME 78.4 fl (80.0-96.0); MONO # 0.4 10^3/uL (0.0-0.8); MONO % 7.9 % (2.0-8.0); NEUTROPHILS # 3.2 10^3/uL (1.5-8.5); NEUTROPHILS % 67.5 % (36.0-66.0); PLATELET COUNT, AUTOMATED 211 10^3/uL (150-450); RED BLOOD COUNT 3.85 10^6/uL (4.00-5.40); WHITE BLOOD COUNT 4.8 10^3/uL (4.0-10.0)
[2022-08-12 17:45] LABS: AMPHETAMINES LEVEL URINE NEGATIVE (NEGATIVE); BARBITURATES URINE NEGATIVE (NEGATIVE); BENZODIAZEPINES URINE NEGATIVE (NEGATIVE); COCAINE METABOLITE URINE NEGATIVE (NEGATIVE); METHADONE URINE NEGATIVE (NEGATIVE); OPIATES URINE NEGATIVE (NEGATIVE); PHENCYCLIDINE URINE NEGATIVE (NEGATIVE)
[2022-08-12 17:48] LABS: ETHYL ALCOHOL (ETHANOL) 0.003 % (0.000-0.010); RSV AMPLIFICATION NEGATIVE (NEGATIVE)
[2022-08-12 17:49] LABS: BILIRUBIN,DIRECT < 0.1 MG/DL (<0.4); SALICYLATE LEVEL < 3.0 MG/DL (<30)
[2022-08-12 17:50] LABS: ACETAMINOPHEN LEVEL < 2.0 UG/ML (10.0-20.0); ALBUMIN 3.6 G/DL (3.2-5.2); ALKALINE PHOSPHATASE 51 U/L (46-116); ALT/SGPT 18 U/L (7.0-40); AST/SGOT 21 U/L (<34); BILIRUBIN,TOTAL 0.2 MG/DL (0.3-1.2); BLOOD UREA NITROGEN 10 MG/DL (9-23); CALCIUM LEVEL 8.3 MG/DL (8.5-10.1); CANNABINOIDS URINE POSITIVE (NEGATIVE); CARBON DIOXIDE LEVEL 25 MMOL/L (20-31); CHLORIDE LEVEL 107 MMOL/L (98-107); GLOMERULAR FILTRATION RATE > 60.0 (>58); GLUCOSE, FASTING 116 MG/DL (60-100); HCG, SERUM QUALITATIVE NEGATIVE (NEGATIVE); POTASSIUM SERUM 3.8 MMOL/L (3.5-5.1); SODIUM LEVEL 139 MMOL/L (136-145); TOTAL PROTEIN 6.2 G/DL (5.7-8.2)
[2022-08-12 17:52] LABS: THYROID STIMULATING HORMONE 1.182 uIU/ML (0.55-4.78)
[2022-08-12] MEDS ORDERED: HOME MED LIST COMPLETE! XX SCH (18:15)
[2022-08-12] MEDS ORDERED: FERR324T2 PO (18:15)
[2022-08-12] MEDS ORDERED: MULT-90 PO (18:15)
[2022-08-12 19:31] LABS: TOTAL IRON BINDING CAPACITY 422 UG/DL (250-425)
[2022-08-12 19:32] LABS: IRON (FE) 9 UG/DL (50-170); PERCENT SATURATION 2.1 % (13.2-45.0)
[2022-08-12 19:34] LABS: FERRITIN 4.1 NG/ML (7.3-270.7)
[2022-08-12 20:09] VITALS: BP 134/72
== END 2022-08-12 21:02 | disposition home or self-care (01) ==
LOC: M ED 15:12
DX: F32.A Depression, unspecified (principal); Z59.00 Homelessness unspecified; F41.9 Anxiety disorder, unspecified; D50.9 Iron deficiency anemia, unspecified; Z90.49 Acquired absence of other specified parts of digestive tract; Z98.84 Bariatric surgery status; F17.200 Nicotine dependence, unspecified, uncomplicated; Z88.1 Allergy status to other antibiotic agents; Z79.899 Other long term (current) drug therapy

== ENCOUNTER 2022-09-21 09:39 | Emergency (ER) | payer OTHER ==
[~2022-09-21] VITALS: Ht 165.1 cm; Wt 77.7 kg
[~2022-09-21 09:39] MED LIST changes: +FERR324T2 PO; +MULT-90 PO
[2022-09-21 11:33] LABS: BASO % 0.1 % (0.0-1.0); EOS # 0.1 10^3/uL (0.0-0.5); EOS % 0.5 % (0.0-3.0); HEMATOCRIT 37.8 % (36.0-47.0); HEMOGLOBIN 10.4 g/dl (12.0-15.5); LYMPH # 1.9 10^3/uL (1.5-5.0); LYMPH % 20.3 % (24.0-44.0); MEAN CORPUSCULAR HEMOGLOBIN 21.2 pg (27.0-33.0); MEAN CORPUSCULAR HGB CONC 27.5 g/dl (32.0-36.5); MEAN CORPUSCULAR VOLUME 77.1 fl (80.0-96.0); MONO # 0.5 10^3/uL (0.0-0.8); MONO % 5.2 % (2.0-8.0); NEUTROPHILS % 73.4 % (36.0-66.0); PLATELET COUNT, AUTOMATED 575 10^3/uL (150-450); WHITE BLOOD COUNT 9.6 10^3/uL (4.0-10.0)
[2022-09-21] MEDS ORDERED: BACITRACIN OINTMENT 30GM TUBE TOP STA (11:47)
[2022-09-21 11:51] LABS: C REACTIVE PROTEIN QUANTITATIV < 0.40 MG/DL (<1.0)
[2022-09-21 11:56] LABS: ALBUMIN 3.3 G/DL (3.2-5.2); ALKALINE PHOSPHATASE 63 U/L (46-116); ALT/SGPT 27 U/L (7.0-40); AST/SGOT 30 U/L (<34); BILIRUBIN,DIRECT < 0.1 MG/DL (<0.4); BILIRUBIN,TOTAL 0.2 MG/DL (0.3-1.2); BLOOD UREA NITROGEN 7 MG/DL (9-23); CARBON DIOXIDE LEVEL 26 MMOL/L (20-31); CHLORIDE LEVEL 103 MMOL/L (98-107); GLOMERULAR FILTRATION RATE > 60.0 (>58); GLUCOSE, FASTING 94 MG/DL (60-100); SODIUM LEVEL 137 MMOL/L (136-145); TOTAL PROTEIN 7.2 G/DL (5.7-8.2)
[2022-09-21 12:02] LABS: ERYTHROCYTE SEDIMENTATION RATE 80 mm/hr (0-20)
[2022-09-21] MEDS ORDERED: DALBAVANCIN 1,500 MG in D5W 250 ML IV ONE ×2 (13:10→14:00)
[2022-09-21] MEDS ORDERED: BACI500O8 TOP (14:18)
[2022-09-21 14:31] VITALS: BP 118/70
[2022-09-21] MEDS ORDERED: FLUCONAZOLE 50MG TABLET PO ONE (15:10)
== END 2022-09-21 15:21 | disposition home or self-care (01) ==
LOC: M ED 09:39
DX: L97.519 Non-pressure chronic ulcer of other part of right foot with unspecified severity (principal); L97.109 Non-pressure chronic ulcer of unspecified thigh with unspecified severity; S60.412A Abrasion of right middle finger, initial encounter; W57.XXXA Bitten or stung by nonvenomous insect and other nonvenomous arthropods, initial encounter; Z88.1 Allergy status to other antibiotic agents; F17.200 Nicotine dependence, unspecified, uncomplicated; Z79.899 Other long term (current) drug therapy
CPT/HCPCS: 73140; 73660; 80048; 80076; 85025; 85652; 86140; 86618; 87070; 87077; 87186; 96365; 99284; J0875